=== PATIENT | male | born 1950 | race Caucasian/White ===

== ENCOUNTER 2019-04-16 13:57 | Day surgery (SDC) | payer MEDICARE, OTHER, SELFPAY ==
--- NOTE | 2019-04-16 | PATH_ITS ---
[facility] Accession Number: [id number] . 01 Material submitted: . colon - SIGMOID POLYP . 01 Diagnosis: Sigmoid Colon, Polyp: Colonic mucosa with hyperplastic features and extensive cautery artifact. MRV 04/18/2019 1055 Local . 01 Electronically signed: . Sky Hand MD, PhD, Pathologist NPI- [id number] . 01 Gross description: . Received in formalin, labeled sigmoid polyp, are multiple fragments of rice-white and brown tissue (0.4 x 0.2 x 0.1 cm in aggregate). Filtered and entirely submitted in cassette A1. ([id number]) /MRV 04/17/2019 1503 Local . 01 Pathologist provided ICD-10: K63.5 . 01 CPT . 554301 Performed at: [address] [facility] [id number] MD Lucas Tian MD Phone: [phone]
[2019-04-16 14:19] VITALS: BP 148/82; PULSE 69; RESP 16; TEMP 36.8; O2SAT 98; BMI 25.1
--- NOTE | 2019-04-16 15:36 | PM.HP.1 ---
History of Present Illness History of Present Illness Date Patient Seen: 04/16/19 Time Patient Seen: 15:47 Chief complaint: [id number] SCREENING COLONOSCOPY Narrative: 68-year-old man presents for routine screening colonoscopy, last 12 years ago No personal history of colon polyp. No family history of colon polyps or colorectal cancer the patient is aware Tolerated prep was No history of IBD Patient History Surgical History (System 03/29/19 @ 08:07 by Marge Whitehead) Status post hernia repair Social History (System 03/29/19 @ 08:07 by Marge Whitehead) household members: spouse and family Smoking Status: Former smoker Family & Social History Social History: household members spouse,family Tobacco & Substance use: Smoking Status Former smoker Meds Home Medications and Allergies Home Medications Medication Instructions Recorded Confirmed Type lisinopril 10 mg PO QDAY #90 tab 10/29/17 04/16/19 Rx simvastatin 10 mg PO HS #90 tab 10/29/17 04/16/19 Rx prednisone 5 mg PO DAILY 04/16/19 04/16/19 History Allergies Allergy/AdvReac Type Severity Reaction Status Date / Time No Known Drug Allergies Allergy Verified 03/29/19 08:07 Review of Systems Constitutional Constitutional: Denies fever(s) Eyes Eyes: Denies bulging eyes ENT Ears, Nose, Mouth, and Throat: No lip swelling Cardiovascular Cardiovascular: Denies generalize swelling Respiratory Respiratory: Denies stridor Gastrointestinal Gastrointestinal: Denies coffee ground emesis Musculoskeletal Musculoskeletal: Denies loss of height Integumentary/Breasts Skin/Breast: Denies wounds Neurologic Neurologic: Denies abnormal speech and Denies confusion Psychiatric Psychiatric: Denies confusion and Denies tactile hallucinations Endocrine Endocrine: Denies deepening of the voice Hematologic/Lymphatic Hematologic/Lymphatic: Denies lymphadenopathy Allergic/Immunologic Allergic/Immunologic: Denies lip swelling Exam Vital Signs (past 8 hours): - 04/16/19 14:19 Temperature 98.3 F Pulse Rate 69 Respiratory Rate 16 Blood Pressure 148/82 H Pulse Oximetry 98 Oxygen Delivery Method Room Air Const General: cooperative and healthy appearing Orientation: alert HENVT Head: normal to inspection Nose: nares normal Mouth: oral mucosae normal and lip normal Eyes Eyelids: eyelids normal Conjunctivae: conjunctivae normal Sclera: sclerae normal Neck Neck: supple and other (No thyromegally) Chest Chest: other (LCTAB , regular respiratory effort) Cardio Rhythm: regular rhythm Heart Sounds: S1 normal, S2 normal, no gallops, no murmurs and no rubs GI Other: Abdomen soft nontender nondistended Skin General: no rashes or lesions noted Neuro General: alert and awake Psych Appearance: grossly normal Affect: normal affect Assessment & Plan Assessment & Plan narrative: 68-year-old man 2 years overdue for regular screening colonoscopy Risks and benefits of colonoscopy discussed, risks including bleeding, perforation, , hypoxia, missed lesions all discussed All questions answered Patient ready to proceed
--- NOTE | 2019-04-16 15:49 | PM.OP.ENDO ---
Operative Date/Time/Diagnoses Date of procedure: 04/16/19 Time of procedure: 16:39 Pre-op diagnosis: Screening colonoscopy for colorectal cancer Post-op diagnosis: same Procedure & Clinicians Study performed: Screening colonoscopy-complete Hot snare polypectomy sigmoid colon x1 Same procedure as scheduled: Yes Indications: 68-year-old man is a 12 year status post most recent colonoscopy, no personal history or family history of colon polyps, no family history of colon or rectal cancer Surgeon: Roberto Middleton Procedure Notes SCOAP/Timeout: Completed Procedure in detail: Patient was brought to the endoscopy suite a time-out was completed. He was sedated over the entire course of the procedure with 150 micro g of fentanyl 11 mg of midazolam. Digital rectal exam was performed notable for an enlarged prostate. It was not nodular. 160 cm colonoscope was introduced into the anus and used to navigate through the folds of the rectum and colon until the cecum was identified. The cecum was identified via and appendiceal orifice as well as a prominent ileocecal valve. The scope was then slowly withdrawn. There was a moderate amount of diverticulosis identified with a small amount the transverse colon and a moderate amount in the sigmoid colon. Within the sigmoid colon a sessile polyp was identified and removed via hot snare polypectomy. This was captured via suction trap and sent to pathology. The scope was then withdrawn and retroflexed in the rectum. No additional lesions were identified Prep was adequate Scope withdrawal time: 22 minutes Sedation minutes: 42 Specimen(s): other (Sigmoid colon polyp) Complications: none Impression: Enlarged prostate Sigmoid diverticulosis Rare transverse colon diverticulosis Sigmoid polyp status post removal with snare Post-procedure Recommendations: Colonscopy in 5 years Follow up: as needed Disposition: PACU
[2019-04-16] MEDS: MIDAZOLAM 5 MG/5 ML VIAL IV (16:43)
[2019-04-16] MEDS: fentaNYL 250 MCG/5 ML INJ IV (16:44)
[2019-04-16 16:47] VITALS: BP 125/75; PULSE 63; RESP 15; TEMP 37.2; O2SAT 96
[2019-04-16 16:52] VITALS: BP 110/73; PULSE 64; RESP 14; O2SAT 96
[2019-04-16 16:57] VITALS: BP 103/70; PULSE 63; RESP 14; O2SAT 95
[2019-04-16 17:03] VITALS: BP 124/73; PULSE 69; RESP 12; TEMP 36.8; O2SAT 96
== END 2019-04-16 17:30 | disposition home or self-care (01) ==
PROVIDERS: PCP Family Medicine; Visit Provider Surgery
PROC: 0DJD8ZZ Inspection of Lower Intestinal Tract, Via Natural or Artificial Opening Endoscopic (ICD-10-PCS; CPT 45378; principal; 2019-04-16 15:00)
DX: Z12.11 Encounter for screening for malignant neoplasm of colon (principal); N40.0 Benign prostatic hyperplasia without lower urinary tract symptoms; K57.30 Diverticulosis of large intestine without perforation or abscess without bleeding; D12.5 Benign neoplasm of sigmoid colon
CPT/HCPCS: 45385; 99152; 99153; J2250; J3010

== ENCOUNTER → 2021-02-17 12:07 | Outpatient (CLI) | payer MEDICARE, OTHER, SELFPAY ==
--- NOTE | 2021-02-17 12:09 | DI.MRI.S_ITS ---
PROCEDURE: MR HAND LT WO CON INDICATIONS: Unilateral primary osteoarthritis of first carpome TECHNIQUE: Noncontrast coronal T1 spin echo and T2 fast spin echo with fat saturation, axial proton density fast spin echo and T2 fast spin echo with fat saturation, sagittal T1 spin echo and STIR through the hand and fingers. COMPARISON: None. FINDINGS: Image quality: Excellent. Bones: Moderate osteoarthritic changes are noted along radial aspect of left wrist involving radiocarpal, scaphoid trapezial and 1st CMC joints with joint space narrowing, subchondral sclerosis and mild edema. Nonspecific subcortical cyst formation are noted involving volar aspect of 1st metacarpal base measures 5 x 7 mm in size. No fracture or dislocation is seen. Nonspecific intraosseous cyst formation are also noted involving dorsal aspect of 1st metacarpal head, radial aspect of 2nd metacarpal head, radial aspect of 2nd proximal phalangeal head, radial aspect of 2nd and 3rd middle phalangeal bases. Osteoarthritic changes are noted throughout MCP joints and interphalangeal joints with joint space narrowing and subchondral sclerosis. Soft tissues: Flexor and extensor tendons of hand and wrist are grossly intact without full-thickness rupture. No evidence of tendinosis or tenosynovitis. Wrist joint fluid is seen. No gross intra-articular loose body. Widened scapholunate interval with slight proximal migration of capitate is noted concerning for early scapholunate advanced collapse. IMPRESSION: 1. Moderate osteoarthritic changes throughout wrist and hand joints as above. 2. Marrow edema and subcortical cyst formation scattered throughout carpal bones, 1st metacarpal base, 1st and 2nd metacarpal heads, 2nd proximal phalangeal head, and 2nd and 3rd middle phalangeal bases concerning for erosion secondary to inflammatory arthropathy suggest clinical correlation. 3. Widened scapholunate interval suggestive of scapholunate ligament tear. Proximal migration of capitate concerning for early scapholunate advanced collapse (SLAC). 4. No gross extensor or flexor tendon rupture or tenosynovitis. Dictated by: Roman Cerda M.D. on 02/17/2021 at 15:58 Approved by: Roman Cerda M.D. on 02/17/2021 at 16:58
== END ==
PROVIDERS: PCP Family Medicine; Referring Provider Orthopaedic Surgery; Visit Provider Orthopaedic Surgery
DX: M18.12 Unilateral primary osteoarthritis of first carpometacarpal joint, left hand (principal)
CPT/HCPCS: 73218

== ENCOUNTER → 2024-08-13 10:15 | Outpatient (CLI) | payer MEDICARE, OTHER, SELFPAY ==
[2024-08-13 11:04] LABS: Add Manual Diff / Slide Review NO; Basophils Absolute Auto 0 /uL (0-100); Basophils Percent Auto 0.8 % (0-2); Eosinophils Absolute Auto 400 /uL (0-450); Eosinophils Percent Auto 6.6 % (2-4); Hematocrit 43.2 % (41-53); Hemoglobin 14.7 g/dL (13.5-17.5); Lymphocytes Absolute Auto 1600 /uL (1100-4500); Lymphocytes Percent Auto 29.4 % (25-40); Mean Corpuscular HGB Conc 34.1 % (30-36); Mean Corpuscular Hemoglobin 30.1 PG (26-34); Mean Corpuscular Volume 88.4 fL (80-100); Monocytes Absolute Auto 500 /uL (0-900); Monocytes Percent Auto 9.8 % (3-14); Neutrophils Absolute Auto 2900 /uL (1500-7000); Neutrophils Percent Auto 53.4 % (50-75); Platelet Count 308 X10^3/uL (150-400); Red Blood Cell Count 4.88 X10^6/uL (4.5-5.9); Red Cell Distribution Width 13.2 % (11.6-14.8); White Blood Cell Count 5.5 X10^3/uL (4.5-11.0)
[2024-08-13 11:46] LABS: Alanine Aminotransferase 24 IU/L (<50); Albumin 4.5 g/dL (3.5-5.0); Albumin Globulin Ratio 1.6 (1.0-2.8); Alkaline Phosphatase 111 U/L (38-126); Aspartate Aminotransferase 28 IU/L (17-59); BUN Creatinine Ratio 18.4 (6-22); Bilirubin Total 0.6 mg/dL (0.2-1.3); Blood Urea Nitrogen 21 mg/dL (9-20); Calcium 9.5 mg/dL (8.4-10.2); Carbon Dioxide 27 mmol/L (22-32); Chloride 102 mmol/L (98-107); Cholesterol 220 mg/dL (140-199); Estimated Glomerular Filt Rate > 60 mL/min (>60); Globulin 2.8 g/dL (1.7-4.1); Glucose 130 mg/dL (80-110); HDL Cholesterol 66 mg/dL (40-60); HEMOLYSIS < 15 (0-50); LDL Cholesterol Calculated 133 mg/dL (<100); Potassium 4.7 mmol/L (3.4-5.1); Sodium 136 mmol/L (137-145); Total Protein 7.3 g/dL (6.3-8.2); Triglycerides 104 mg/dL (35-150)
== END ==
PROVIDERS: PCP Family Medicine; Referring Provider Family Medicine; Visit Provider Family Medicine
DX: I10 Essential (primary) hypertension (principal); E78.00 Pure hypercholesterolemia, unspecified
CPT/HCPCS: 36415; 80053; 80061; 85025

== ENCOUNTER → 2025-07-28 09:28 | Outpatient (CLI) | payer MEDICARE, OTHER, SELFPAY ==
[2025-07-28 10:14] LABS: Add Manual Diff / Slide Review NO; Hematocrit 38.2 % (41-53); Hemoglobin 12.8 g/dL (13.5-17.5); Lymphocytes Absolute Auto 1300 /uL (1100-4500); Mean Corpuscular HGB Conc 33.5 % (30-36); Mean Corpuscular Hemoglobin 29.5 PG (26-34); Mean Corpuscular Volume 88.0 fL (80-100); Platelet Count 292 X10^3/uL (150-400)
[2025-07-28 10:41] LABS: Alanine Aminotransferase 20 IU/L (<50); Albumin 4.2 g/dL (3.5-5.0); Albumin Globulin Ratio 1.4 (1.0-2.8); Alkaline Phosphatase 108 U/L (38-126); Blood Urea Nitrogen 22 mg/dL (9-20); Calcium 9.1 mg/dL (8.4-10.2); Carbon Dioxide 27 mmol/L (22-32); Chloride 104 mmol/L (98-107); Cholesterol 190 mg/dL (140-199); Estimated Glomerular Filt Rate > 60 mL/min (>60); Globulin 2.9 g/dL (1.7-4.1); Glucose 131 mg/dL (70-99); HDL Cholesterol 51 mg/dL (40-60); HEMOLYSIS < 15 (0-50); Potassium 4.8 mmol/L (3.4-5.1); Sodium 138 mmol/L (137-145); Total Protein 7.1 g/dL (6.3-8.2); Triglycerides 184 mg/dL (35-150)
[2025-07-29 07:36] LABS: PSA, Total 6.1 ng/mL (0.0-4.0)
== END ==
PROVIDERS: PCP Family Medicine; Referring Provider Family Medicine; Visit Provider Family Medicine
DX: Z12.5 Encounter for screening for malignant neoplasm of prostate (principal); E78.00 Pure hypercholesterolemia, unspecified; I10 Essential (primary) hypertension
CPT/HCPCS: 36415; 80053; 80061; 84153; 84154; 85025